=== PATIENT | male | born 1955 | race Caucasian/White ===

== ENCOUNTER 2025-05-14 07:34 | Day surgery (SDC) | payer MEDICARE, OTHER ==
[2025-05-14] VITALS (17 sets, daily range): BP systolic 101–132; BP diastolic 64–79
[~2025-05-14] VITALS: Ht 175.3 cm; Wt 78.6 kg
[~2025-05-14 07:34] MED LIST: BENADRYL25 MG PO; NIAC500 PO
[2025-05-14] MEDS ORDERED: ATOR10 PO (07:49)
--- NOTE | 2025-05-14 08:03 | NUR ---
05/14/25 0803 Meena Cortez History, Chart, Medications and Allergies reviewed before start of procedure. 3-LEAD EKG REVIEWED WITH PHYSICIAN PRIOR TO START OF PROCEDURE. MONITOR INTACT WITH CONTINUOUS PULSE OXIMETRY, CONTINUOUS END TITAL CO2, 3-LEAD EKG AND INTERMITTENT BLOOD PRESSURE. PATIENT DETERMINED TO BE ASA APPROPRIATE FOR PROPOFOL SEDATION PRIOR TO START OF PROCEDURE BY . O2 VIA POM INTACT THROUGHOUT SEDATION/PROCEDURE 10L/M.
--- NOTE | 2025-05-14 09:47 | NUR ---
Patient States Post-Procedure ride home has been arranged. Discharged via wheelchair to private car for ride home. Discharge instructions reviewed with patient. Patient verbalizes understanding. Copy given to patient to take home.
== END 2025-05-14 23:00 | disposition home or self-care (01) ==
LOC: ORSCMMR 07:34 → ORD 08:15 → ORSCMMR 08:30 → ORD 08:45 → ORSCMMR 23:00
PROVIDERS: Internal Medicine Gastroenterology
PROC: 0DBM8ZX Excision of Descending Colon, Via Natural or Artificial Opening Endoscopic, Diagnostic (ICD-10-PCS; principal; 2025-05-14 08:30)
DX: Z12.11 Encounter for screening for malignant neoplasm of colon (principal); K63.5 Polyp of colon; Z86.0101 Personal history of adenomatous and serrated colon polyps; E78.00 Pure hypercholesterolemia, unspecified; Z79.899 Other long term (current) drug therapy; Z87.891 Personal history of nicotine dependence
CPT/HCPCS: 88305; J2704; J7120